=== PATIENT | male | born 1990 | race Caucasian/White ===

== ENCOUNTER 2017-07-06 07:11 | Emergency (ER) | payer BC ==
[2017-07-06] MEDS ORDERED: Ibuprofen 800 MG TAB ONE (08:51)
== END 2017-07-06 08:59 | disposition home or self-care (01) ==
LOC: ERS 07:11
DX: M76.31 Iliotibial band syndrome, right leg (principal); F31.9 Bipolar disorder, unspecified
CPT/HCPCS: 99283

== ENCOUNTER 2019-08-01 12:03 | Emergency (ER) | payer BC, SELFPAY ==
[2019-08-01] MEDS ORDERED: diphenhydrAMINE 50 MG/ML VIAL ONE (13:03)
[2019-08-01] MEDS ORDERED: Metoclopramide 10 MG/10 ML UDCUP ONE (13:03)
[2019-08-01] MEDS ORDERED: Ketorolac Tromethamine 30 MG/ML VIAL ONE (13:03)
[2019-08-01] MEDS ORDERED: Metoclopramide HCl 10 MG/2 ML VIAL ONE (13:04)
== END 2019-08-01 14:26 | disposition home or self-care (01) ==
LOC: ERS 12:03
DX: G44.209 Tension-type headache, unspecified, not intractable (principal); F31.9 Bipolar disorder, unspecified
CPT/HCPCS: 96365; 96375; J1200; J1885; J2765